=== PATIENT | female | born 1980 | race Caucasian/White ===

== ENCOUNTER 2020-11-24 12:28 | Emergency (ER) | payer BC ==
[~2020-11-24] VITALS: Ht 160 cm; Wt 74.8 kg
[2020-11-24 13:43] LABS: BE -1.8 mmol/L (-2 to +3); PCO2 24.3 mmHg (35.0-45.0); pH 7.521 (7.340-7.450)
[2020-11-24 13:45] LABS: PO2 406.9 mmHg (75.0-100.0)
[2020-11-24 14:37] VITALS: BP 121/79
== END 2020-11-24 14:41 | disposition home or self-care (01) ==
LOC: M.ERS 12:28
PROVIDERS: Physician Assistant
DX: T58.91XA Toxic effect of carbon monoxide from unspecified source, accidental (unintentional), initial encounter (principal); R42 Dizziness and giddiness; R51.9 Headache, unspecified; R11.0 Nausea; J45.909 Unspecified asthma, uncomplicated; Y92.89 Other specified places as the place of occurrence of the external cause